=== PATIENT | male | born 1995 | race Caucasian/White ===

== ENCOUNTER 2020-03-26 22:09 | Emergency (ER) | payer SELFPAY ==
[2020-03-26] MEDS ORDERED: LIDOCAINE 4%/TETRACAINE 0.5%/EPI 0.18% 5 ML TOPICAL SOLN TOP ONE (22:35)
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
[2020-03-26 23:22] VITALS: BP 157/102
== END 2020-03-26 23:46 | disposition home or self-care (01) ==
LOC: ER 22:09
DX: T14.8XXA Other injury of unspecified body region, initial encounter (principal); S01.01XA Laceration without foreign body of scalp, initial encounter; X58.XXXA Exposure to other specified factors, initial encounter; F17.200 Nicotine dependence, unspecified, uncomplicated
CPT/HCPCS: 99282; 12002; J3490

== ENCOUNTER 2020-04-06 11:02 | Emergency (ER) | payer SELFPAY ==
[2020-04-06 11:10] VITALS: BP 167/110
--- NOTE | 2020-04-06 11:17 | ER Document Report ---
ED Suture/Wound Recheck - General Chief Complaint: Suture Removal Stated Complaint: SUTURE REMOVAL Time Seen by Provider: 04/06/20 11:14 Mode of Arrival: Ambulatory Information source: Patient - HPI Treated in ED (days ago): 9 Previous ED treatment: Laceration repair Quality of pain: No pain Severity: None Symptoms since procedure: No complaints Exacerbated by: Denies Relieved by: Denies - Related Data Allergies/Adverse Reactions: No Known Allergies Allergy (Verified 04/06/20 11:16) Past Medical History - General Information source: Patient - Social History Smoking Status: Never Smoker Cigarette use (# per day): No Chew tobacco use (# tins/day): No Smoking Education Provided: No Frequency of alcohol use: None Drug Abuse: None Family History: None Review of Systems - Review of Systems Constitutional: No symptoms reported EENT: No symptoms reported Cardiovascular: No symptoms reported Respiratory: No symptoms reported Gastrointestinal: No symptoms reported Genitourinary: No symptoms reported Male Genitourinary: No symptoms reported Musculoskeletal: No symptoms reported Skin: No symptoms reported Hematologic/Lymphatic: No symptoms reported Neurological/Psychological: No symptoms reported Physical Exam - Vital signs Vitals: Temp Pulse Resp BP Pulse Ox 98.5 F 96 14 167/110 H 100 04/06/20 11:07 04/06/20 11:07 04/06/20 11:07 04/06/20 11:07 04/06/20 11:07 Interpretation: Normal - General General appearance: Appears well, Alert - HEENT Head: Normocephalic, Atraumatic Eyes: Normal Pupils: PERRL - Respiratory Respiratory status: No respiratory distress Chest status: Nontender Breath sounds: Normal Chest palpation: Normal - Cardiovascular Rhythm: Regular Heart sounds: Normal auscultation Murmur: No - Abdominal Inspection: Normal Distension: No distension Bowel sounds: Normal Tenderness: Nontender Organomegaly: No organomegaly - Back Back: Normal, Nontender - Extremities General upper extremity: Normal inspection, Nontender, Normal color, Normal ROM, Normal temperature General lower extremity: Normal inspection, Nontender, Normal color, Normal ROM, Normal temperature, Normal weight bearing. No: Laura's sign - Neurological Neuro grossly intact: Yes Cognition: Normal Orientation: AAOx4 Gurjit Coma Scale Eye Opening: Spontaneous Gurjit Coma Scale Verbal: Oriented [place] Coma Scale Motor: Obeys Commands Gurjit Coma Scale Total: 15 Speech: Normal Motor strength normal: LUE, RUE, LLE, RLE Sensory: Normal - Psychological Associated symptoms: Normal affect, Normal mood - Skin Skin Temperature: Warm Skin Moisture: Dry Skin Color: Normal Notes: Healing wound to the top of his occiput. Stapled 9 days ago. No fever no excess drainage no excessive warmth at the site Course - Vital Signs Vital signs: Temp Pulse Resp BP Pulse Ox 98.5 F 96 14 167/110 H 100 04/06/20 11:07 04/06/20 11:07 04/06/20 11:07 04/06/20 11:07 04/06/20 11:07 Discharge - Discharge Clinical Impression: Removal of staple Condition: Good Disposition: HOME, SELF-CARE Instructions: Staple Removal ([facility])
== END 2020-04-06 11:27 | disposition home or self-care (01) ==
LOC: ER 11:02
DX: S01.81XD Laceration without foreign body of other part of head, subsequent encounter (principal); X58.XXXD Exposure to other specified factors, subsequent encounter

== ENCOUNTER 2020-09-06 15:59 | Emergency (ER) | payer SELFPAY ==
[2020-09-06] MEDS ORDERED: HYDROCODONE/ACETAMINOPHEN 5-325 MG TABLET PO ONE (17:31)
--- NOTE | 2020-09-06 17:35 | ER Document Report ---
ED Medical Screen (RME) - General Chief Complaint: Hand Injury Stated Complaint: HAND INJURY Time Seen by Provider: 09/06/20 17:25 Mode of Arrival: Ambulatory Information source: Patient Notes: Patient is a 25-year-old male comes emergency room complaining of a crush injury to his right hand. Patient states that yesterday he was replacing his truck springs on his truck and completed it and the wrench worked fantastic. He got in his 's [employer] [place] today when out to put them on. As he was attempting to put him on the wrench slipped and causing the car axle in spring to fall down on patient's right hand. Patient was wearing gloves and was able to get it checked back up was complaining of pain to his right hand at the third fourth and fifth metacarpal areas. Patient is unable to make a full extension of all fingers or a full grasping motion at this time. Patient only has a history of IBD, he does smoke and alcohol as well. Today patient states he had 4 beers. Patient is a well-nourished well-developed 25-year-old male who is in no apparent distress but appears uncomfortable. Cardiac: Shows tachycardic on the monitor the 110 bpm Lungs: Bilateral breath sounds increased clear to auscultation. Upper extremities: Examination patient's area concern is the right hand. Examination shows patient has an area that extends from the mid upper third metacarpal across to the fifth metacarpal with swelling mostly at the third and fourth dorsal aspect of the metacarpals. 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 Patient has good cap refill in the nailbeds of the right fingers. There is moderate swelling and redness noted to the same area as described. I have greeted and performed a rapid initial assessment of this patient. A comprehensive ED assessment and evaluation of the patient, analysis of test results and completion of the medical decision making process will be conducted by additional ED providers. Dictation of this chart was performed using voice recognition software; therefore, there may be some unintended grammatical errors. - Related Data Allergies/Adverse Reactions: No Known Drug Allergies Allergy (Verified 09/06/20 17:22) Past Medical History - Social History Chew tobacco use (# tins/day): No Frequency of alcohol use: Social Drug Abuse: Marijuana Physical Exam - Vital signs Vitals: Temp Pulse Resp BP Pulse Ox 98.5 F 110 H 16 143/107 H 97 09/06/20 16:21 09/06/20 16:21 09/06/20 16:21 09/06/20 16:21 09/06/20 16:21 Course - Vital Signs Vital signs: Temp Pulse Resp BP Pulse Ox 98.5 F 110 H 16 143/107 H 97 09/06/20 16:21 09/06/20 16:21 09/06/20 16:21 09/06/20 16:21 09/06/20 16:21
--- NOTE | 2020-09-06 18:08 | RADIOLOGY REPORT (SQ) ---
EXAM DESCRIPTION: HAND RIGHT 3 VIEWS IMAGES COMPLETED DATE/TIME: 09/06/2020 4:50 pm REASON FOR STUDY: Crush injury. COMPARISON: None. EXAM PARAMETERS: NUMBER OF VIEWS: Three views. TECHNIQUE: AP, lateral and oblique radiographic images acquired of the right hand. LIMITATIONS: None. FINDINGS: MINERALIZATION: Normal. BONES: No acute fracture or dislocation. No worrisome bone lesions. JOINTS: No effusions. SOFT TISSUES: No soft tissue swelling. No foreign body. OTHER: No other significant finding. IMPRESSION: NEGATIVE STUDY OF THE RIGHT HAND. NO RADIOGRAPHIC EVIDENCE OF ACUTE INJURY. TECHNICAL DOCUMENTATION: JOB ID: [id number] 2010 [employer]- All Rights Reserved Reading location - IP/workstation name: [email or web address]
--- NOTE | 2020-09-06 18:34 | ER Document Report ---
ED Hand/Wrist Injury - General Chief Complaint: Hand Injury Stated Complaint: HAND INJURY Time Seen by Provider: 09/06/20 17:25 Primary Care Provider: LIZ SON [Primary Care Provider] - Follow up as needed MARYAM LANDRUM DO [ACTIVE STAFF] - Follow up as needed Mode of Arrival: Ambulatory Information source: Patient Notes: I originally did the triage note on this patient earlier and since his x-rays were back and decided to pick him up. Patient was trying to place front end springs on his [employer] focus when the wrench slipped and the car fell down on top of his hand. He is complaining of a crush injury to the top of his right hand. Patient denies any other injuries. TRAVEL OUTSIDE OF THE [place] IN LAST 30 DAYS: No - HPI Injury to: Hand Onset: Just prior to arrival Where: Home Timing: Constant Quality of pain: Sharp, Throbbing Severity: Moderate Pain Level: 3 Context: Crush - Related Data Allergies/Adverse Reactions: No Known Drug Allergies Allergy (Verified 09/06/20 17:22) Past Medical History - General Information source: Patient - Social History Smoking Status: Current Every Day Smoker Cigarette use (# per day): Yes - Half pack Chew tobacco use (# tins/day): No Smoking Education Provided: Yes Frequency of alcohol use: Social Drug Abuse: Marijuana Lives with: Family Family History: None, Reviewed & Not Pertinent Review of Systems - Review of Systems Constitutional: No symptoms reported EENT: No symptoms reported Cardiovascular: No symptoms reported Respiratory: No symptoms reported Gastrointestinal: No symptoms reported Genitourinary: No symptoms reported Male Genitourinary: No symptoms reported Musculoskeletal: See HPI, Joint pain, Joint swelling Skin: No symptoms reported Hematologic/Lymphatic: No symptoms reported Neurological/Psychological: No symptoms reported -: Yes All other systems reviewed and negative Physical Exam - Vital signs Vitals: Temp Pulse Resp BP Pulse Ox 98.5 F 110 H 16 143/107 H 97 09/06/20 16:21 09/06/20 16:21 09/06/20 16:21 09/06/20 16:21 09/06/20 16:21 Interpretation: Hypertensive, Tachycardic - Notes Notes: PHYSICAL EXAMINATION: GENERAL: Well-appearing, well-nourished and in no acute distress. Uncomfortable appearing though HEAD: Atraumatic, normocephalic. LUNGS: Breath sounds clear to auscultation bilaterally and equal. No wheezes ra les or rhonchi. HEART: Tacky rate and rhythm without murmurs Musculoskeletal: Examination patient's area concern is his right hand. Evaluation shows there to be swelling on the dorsal aspect of the right hand extending from the third metacarpal through the fifth metacarpal distally. Mild swelling at the mid range of the metacarpals on the same fingers. Patient has 95% extension of the fingers and about 95% flexion of the fingers. This most likely is from the amount of swelling noted on the dorsum. There is extended swelling down to approximate distal wrist. Examination of the palm does not show any signs of swelling or deformity there are no open wounds. Patient has good cap refill in the nailbeds of the fingers of the right hand. NEUROLOGICAL: Normal speech, normal gait. Normal sensory, motor exams PSYCH: Normal mood, normal affect. SKIN: As stated examination of the area concern is the dorsum of the right hand extending from the third metacarpal area to the fifth metacarpal area without any sign of wounds. Moderate swelling is noted in that same generalized area. No ecchymosis is noted. Course - Re-evaluation Re-evalutation: 09/06/20 23:23 Patient was informed that this type of an injury with the swelling is very difficult for me to ascertain whether he has any ligament damage although having 95% flexion and extension I do not believe it to be a rupture of any of the tendons in the fingers. However I did inform him that the is to remove the splint in about 3 days and attempt to straighten the fingers out if he does not have 100% extension and flexion at that time he is to contact the orthopedic surgeon. I have given the name of the orthopedist aviation technical systems specialist today to contact. - Vital Signs Vital signs: Temp Pulse Resp BP Pulse Ox 98.5 F 89 18 128/82 H 100 09/06/20 16:21 09/06/20 19:34 09/06/20 19:34 09/06/20 19:34 09/06/20 19:34 Procedures - Immobilization Right Hand Pre-Proc Neuro Vasc Exam: Normal Immobilizer type: Cock-up Performed by: PCT Post-Proc Neuro Vasc Exam: Normal Alignment checked and good: Yes Discharge - Discharge Clinical Impression: Contusion of right hand including fingers Qualifiers: Encounter type: initial encounter Qualified Code(s): S60.221A - Contusion of right hand, initial encounter; S60.00XA - Contusion of unspecified finger without damage to nail, initial encounter Crushing injury of right hand Qualifiers: Encounter type: initial encounter Qualified Code(s): S67.21XA - Crushing injury of right hand, initial encounter Condition: Stable Disposition: HOME, SELF-CARE Instructions: Contusion ([facility]), Crush Injury ([facility]), Tendon Strain ([facility]) Additional Instructions: As we discussed use the splint to rest the hand. Ice to the area 3-4 times a day with ibuprofen and Tylenol for pain and discomfort. I am also writing for some pain medication for couple of days because of the swelling and tenderness. As we have discussed you do not have 100% extension of those fingers on the right hand. This could just be because of the swelling but I cannot really say if this is not caused by a partial tendon tear. After 3 days take the splint off attempt to straighten her fingers out if you do not have 100% straightening and 100% gripping you will need to see an orthopedist. I am giving you the name of the orthopedic on-call. You can contact his office to see if he can accommodate you. As stated if you cannot extend those or flex those very well you have a certain amount of time to fix these things so you do not need to wait on it. Should you have any concerns or problems arise return to ER for re evaluation. Prescriptions: Hydrocodone/Acetaminophen [[place] 5-325 mg Tablet] 1 tab PO Q6 PRN #10 tablet PRN Reason: Hydrocodone/Acetaminophen [[place] 5-325 mg Tabs (6 Tab/ER Disp)] 0 tab PO ASDIR PRN #1 dspk PRN Reason: Forms: Elevated Blood Pressure Referrals: LIZ SON [Primary Care Provider] - Follow up as needed MARYAM LANDRUM DO [ACTIVE STAFF] - Follow up as needed
[2020-09-06] MEDS ORDERED: HYDROCODONE/ACETAMINOPHEN 5-325 MG (6 TAB/ER DISP) PO PRN (19:06)
[2020-09-06 19:35] VITALS: BP 128/82
== END 2020-09-06 19:36 | disposition home or self-care (01) ==
LOC: ER 15:59
DX: S67.21XA Crushing injury of right hand, initial encounter (principal); S60.221A Contusion of right hand, initial encounter; W20.8XXA Other cause of strike by thrown, projected or falling object, initial encounter; Y93.89 Activity, other specified; Y92.009 Unspecified place in unspecified non-institutional (private) residence as the place of occurrence of the external cause; F17.210 Nicotine dependence, cigarettes, uncomplicated; F12.10 Cannabis abuse, uncomplicated; R00.0 Tachycardia, unspecified
CPT/HCPCS: 99283

== ENCOUNTER 2020-09-28 22:58 | Emergency (ER) | payer SELFPAY ==
[2020-09-28 23:27] VITALS: BP 144/106
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
== END 2020-09-29 02:20 | disposition home or self-care (01) ==
LOC: ER 22:58
DX: S60.222A Contusion of left hand, initial encounter (principal); S60.221A Contusion of right hand, initial encounter; Y04.0XXA Assault by unarmed brawl or fight, initial encounter; F17.200 Nicotine dependence, unspecified, uncomplicated
CPT/HCPCS: 99283

== ENCOUNTER 2020-10-04 16:47 | Emergency (ER) | payer SELFPAY ==
[2020-10-04] MEDS ORDERED: NORMAL SALINE 1000 ML 1,000 ML IV ONE (17:09)
--- NOTE | 2020-10-04 17:09 | ER Document Report ---
ED Medical Screen (RME) - General Chief Complaint: Flu Symptoms Stated Complaint: VOMITING,COUGH,SOB,CHEST PAIN Time Seen by Provider: 10/04/20 17:03 Mode of Arrival: Wheelchair Information source: Patient Notes: 25-year-old male presented to ED for complaint of feeling extremely weak and then falling off of the couch while he was playing a video game. He states then he started vomiting and choking on the vomit. He states it took over an hour for him to be able to get up off of the floor. He states his heart was racing he was extremely pale and weak. He states his girlfriend is a nurse she had to get him up to bring him into the emergency room. He states he has an extensive family history of cardiac problems with his grandmother having her first cardiac arrest at 26. He states he has an extensive diabetes family history and he is extremely scared of this happening. He states he has had frequent episodes of getting very weak when he eats and when he does not eat. He states he has been extremely thirsty more so in the last couple months. He just does not know what is going on with him today. I have greeted and performed a rapid initial assessment of this patient. A comprehensive ED assessment and evaluation of the patient, analysis of test results and completion of medical decision making process will be conducted by an additional ED providers. TRAVEL OUTSIDE OF THE [place] IN LAST 30 DAYS: No - Related Data Allergies/Adverse Reactions: No Known Drug Allergies Allergy (Verified 09/06/20 17:22)
[2020-10-04 17:51] LABS: ABSOLUTE BASOPHILS # (AUTO) 0.1 10^3/uL (0.0-0.2); ABSOLUTE EOSINOPHILS # (AUTO) 0.1 10^3/uL (0.0-0.6); ABSOLUTE LYMPHOCYTES (AUTO) 1.3 10^3/uL (0.5-4.7); ABSOLUTE MONOCYTES (AUTO) 0.4 10^3/uL (0.1-1.4); ABSOLUTE NEUT (AUTO) 7.6 10^3/uL (1.7-8.2); BASOPHILS % (AUTO) 0.6 % (0-2); EOSINOPHILS % (AUTO) 1.6 % (0-6); HEMATOCRIT 40.6 % (37.9-51.0); HEMOGLOBIN 14.1 g/dL (13.5-17.0); LYMPHOCYTES % (AUTO) 13.5 % (13-45); MEAN CORPUSCULAR HEMOGLOBIN 32.3 pg (27.0-33.4); MEAN CORPUSCULAR HGB CONC 34.8 g/dL (32.0-36.0); MEAN CORPUSCULAR VOLUME 93 fl (80-97); MONOCYTES % (AUTO) 4.4 % (3-13); PLATELET COUNT 260 10^3/uL (150-450); RED BLOOD COUNT 4.37 10^6/uL (4.35-5.55); RED CELL DISTRIBUTION WIDTH 14.5 % (11.5-14.0); SEGMENTED NEUTROPHILS % (AUTO) 79.9 % (42-78); TOTAL CELLS COUNTED % (AUTO) 100 %; WHITE BLOOD COUNT 9.5 10^3/uL (4.0-10.5)
[2020-10-04 18:00] LABS: ALBUMIN 4.8 g/dL (3.5-5.0); ALKALINE PHOSPHATASE 114 U/L (38-126); ANION GAP 10 (5-19); ASPARTATE AMINO TRANSFERASE 96 U/L (17-59); BILIRUBIN,DIRECT 0.2 mg/dL (0.0-0.4); BILIRUBIN,TOTAL 1.2 mg/dL (0.2-1.3); BLOOD UREA NITROGEN 10 mg/dL (7-20); CALCIUM 9.5 mg/dL (8.4-10.2); CARBON DIOXIDE 29 mmol/L (22-30); CHLORIDE 102 mmol/L (98-107); GLUCOSE 112 mg/dL (75-110); POTASSIUM 3.9 mmol/L (3.6-5.0); TOTAL PROTEIN 7.9 g/dL (6.3-8.2)
[2020-10-04 18:35] LABS: A TYPE INFLUENZA AG NEGATIVE (NEGATIVE); B INFLUENZA AG NEGATIVE (NEGATIVE)
--- NOTE | 2020-10-04 18:51 | RADIOLOGY REPORT (SQ) ---
EXAM DESCRIPTION: CHEST SINGLE VIEW IMAGES COMPLETED DATE/TIME: 10/04/2020 6:13 pm REASON FOR STUDY: Weak syncopal COMPARISON: None. EXAM PARAMETERS: NUMBER OF VIEWS: One view. TECHNIQUE: Single frontal radiographic view of the chest acquired. RADIATION DOSE: NA LIMITATIONS: None. FINDINGS: LUNGS AND PLEURA: No opacities, masses or pneumothorax. No pleural effusion. MEDIASTINUM AND HILAR STRUCTURES: No masses. Contour normal. HEART AND VASCULAR STRUCTURES: Heart normal in size. Normal vasculature. BONES: No acute findings. HARDWARE: None in the chest. OTHER: No other significant finding. IMPRESSION: NO ACUTE RADIOGRAPHIC FINDING IN THE CHEST. TECHNICAL DOCUMENTATION: JOB ID: [id number] 2010 [employer]- All Rights Reserved Reading location - IP/workstation name: [email or web address]
--- NOTE | 2020-10-04 19:35 | ER Document Report ---
ED Flu Like - General Chief Complaint: Flu Symptoms Stated Complaint: VOMITING,COUGH,SOB,CHEST PAIN Time Seen by Provider: 10/04/20 17:03 Primary Care Provider: MICHELLE MOSES MD [ACTIVE STAFF] - Follow up in 1 week (for GI follow up) Mode of Arrival: Wheelchair TRAVEL OUTSIDE OF THE [place] IN LAST 30 DAYS: No - HPI Notes: 25-year-old male to the emergency department with complaints of weakness, nausea vomiting, epigastric pain, chest pain that began tonight but states that he has been having this off and on since December. He states that he has been vomiting several times a month. Typically he has an episode where he vomits in the night 2-3 times a week. He states it does seem to get worse with food such as spicy hot wings. He denies any burping. He states that it is so severe at this point that now he has difficulty eating. He does admit to alcohol use. He states he has between 8 shots with a sixpack a week. He denies any fevers or chills. He states he just feels exceptionally weak and fatigued. He denies any possible contacts for COVID-19. Denies any loss of sense of smell or taste. All over body aches. The patient was evaluated during the global COVID 19 pandemic, and that diagnosis was suspected/considered upon their initial presentation. Their evaluation, treatment, and testing was consistent with current guidelines for patients who present with complaints or symptoms that may be related to COVID- 19. - Related Data Allergies/Adverse Reactions: No Known Drug Allergies Allergy (Verified 09/06/20 17:22) Past Medical History - General Information source: Patient - Social History Smoking Status: Current Every Day Smoker Frequency of alcohol use: Heavy - 8 shots a week with at least a sixpack of beer Drug Abuse: None Family History: None, Reviewed & Not Pertinent Past Surgical History: Reports: Hx Oral Surgery - wisdom Review of Systems - Review of Systems Constitutional: Malaise, Weakness. denies: Chills, Fever EENT: No symptoms reported Cardiovascular: See HPI, Chest pain, Lightheaded. denies: Palpitations, Heart racing, Syncope, Dizziness Respiratory: denies: Cough, Short of breath Gastrointestinal: See HPI, Abdominal pain, Nausea, Vomiting. denies: Diarrhea Genitourinary: No symptoms reported Musculoskeletal: No symptoms reported Skin: No symptoms reported Hematologic/Lymphatic: No symptoms reported Neurological/Psychological: No symptoms reported -: Yes All other systems reviewed and negative Physical Exam - Vital signs Vitals: Temp Pulse Resp BP Pulse Ox 98.5 F 87 20 145/95 H 99 10/03/20 17:01 10/03/20 17:01 10/03/20 17:01 10/03/20 17:01 10/03/20 17:01 Interpretation: Hypertensive - Notes Notes: PHYSICAL EXAMINATION: GENERAL: Well-appearing, well-nourished and in no acute distress. HEAD: Atraumatic, normocephalic. EYES: Pupils equal round and reactive to light, extraocular movements intact, sclera anicteric, conjunctiva are normal. ENT: nares patent, oropharynx clear without exudates. Moist mucous membranes. TMs clear bilaterally NECK: Normal range of motion, supple without lymphadenopathy LUNGS: Breath sounds clear to auscultation bilaterally and equal. No wheezes rales or rhonchi. HEART: Regular rate and rhythm without murmurs ABDOMEN: Soft, positive tenderness to palpation to the epigastrium. Negative Lee sign, negative McBurney's point, normoactive bowel sounds. No guarding, no rebound. No masses appreciated. No CVA tenderness EXTREMITIES: Normal range of motion, no pitting or edema. No cyanosis. NEUROLOGICAL: No focal neurological deficits. Moves all extremities spontaneously and on command. PSYCH: Normal mood, normal affect. SKIN: Warm, Dry, normal turgor, no rashes or lesions noted. Course - Re-evaluation Re-evalutation: 10/04/20 2 Rounded on patient. He is feeling much better after Zofran, Toradol, Pepcid as well as IV fluids. He is requesting a brigette nika. He tolerates p.o. challenge. I suspect that this patient has reflux disease with likely a little gastritis and possibly some esophagitis given the amount of vomiting he states he has been doing. He drinks quite a bit every week and he eats a lot of foods that are acidic in nature. I have counseled him against this. We will go ahead and put him on the omeprazole. However, I have encouraged him to follow-up with a GI specialist and will give him information. He is to return if he is worse. He was tested for COVID-19. We will await his labs results. Suspect that this is more of a chronic issue than likely an acute COVID-19 infection however, we will have the patient quarantine appropriately. He agrees with the plan. - Vital Signs Vital signs: Temp Pulse Resp BP Pulse Ox 98.5 F 85 18 143/74 H 100 10/03/20 17:01 10/04/20 20:28 10/04/20 20:28 10/04/20 20:28 10/04/20 20:28 - Laboratory Results Result Diagrams: 10/04/20 17:16 10/04/20 17:16 Laboratory Results Interpreted: 10/04/20 10/04/20 17:16 17:16 RDW 14.5 H Seg Neutrophils % 79.9 H Glucose 112 H AST 96 H ALT 65 H Critical Laboratory Results Reviewed: No Critical Results - Radiology Results Critical Radiology Results Reviewed: No Critical Results - EKG Interpretation by Me Additional EKG results interpreted by me: 10/04/20 Rate: 80 Rhythm: Sinus Interpretation: No STEMI, no ST changes, normal axis, no LVH Discharge - Discharge Clinical Impression: Epigastric abdominal pain, Weakness, Encounter for laboratory testing for COVID-19 virus Vomiting Qualifiers: Vomiting type: unspecified Vomiting Intractability: non-intractable Nausea presence: with nausea Qualified Code(s): R11.2 - Nausea with vomiting, unspecified Condition: Stable Disposition: HOME, SELF-CARE Instructions: COVID-19 Guidance for Persons Under Investigation, Reflux Disease (GERD) ([facility]), Vomiting ([facility]) Additional Instructions: Please follow-up with GI specialist without fail. Please take medicine as prescribed. Return if you have worsening symptoms. Avoid acidic foods, alcohol, chocolate, mint. Please wait 2 hours before laying down after eating. Today you were tested for Covid. You will need to quarantine until the result is back. Results usually come back within 3 to 5 days. As a person under investigation for COVID-19, [facility], division of public health advises you to adhere to the following guidance until your test results are reported to you. If your test result is positive, you will receive additional information from your provider and your local health department at that time. Remain at home until you are cleared by the healthcare provider public health authorities. Keep a log of visitors to your home and notify any visitors to your home of your isolation status. If you plan to move to a new address or leave the country, notify the local health department and your County. Call your doctor or seek care if you have an urgent medical need. Before seeking medical care, call ahead to get instructions from the provider before arriving at the medical office, clinic, or hospital. Notify them that you are being tested for the virus that causes COVID-19 so that arrangements can be made, as necessary, to prevent transmission to others in the healthcare setting. Next, notify the local health department and your County. If a medical emergency arises and you need to call 911, informed the first responders that you are being tested for the virus that causes COVID-19. Next, notified the local health department and your County. Prescriptions: Omeprazole 40 mg PO DAILY #60 capsule. Promethazine HCl [Phenergan 25 mg Supp.rect] 1 supp IA Q6H #12 supp.rect Ondansetron [Zofran Odt 4 mg Tablet] 1 - 2 tab PO Q4H PRN #15 tab.rapdis PRN Reason: For Nausea/Vomiting Forms: Return to Work Referrals: MICHELLE MOSES MD [ACTIVE STAFF] - Follow up in 1 week (for GI follow up)
[2020-10-04] MEDS ORDERED: KETOROLAC TROMETHAMINE INJ/PF 30 MG/1 ML SDV IV ONE (19:36)
[2020-10-04] MEDS ORDERED: ONDANSETRON HCL INJ/PF 4 MG/2 ML SDV IV ONE (19:36)
[2020-10-04] MEDS ORDERED: FAMOTIDINE INJ/PF 20 MG/2 ML SDV IV ONE (19:36)
[2020-10-04 20:30] VITALS: BP 143/74
--- NOTE | 2020-10-04 21:13 | EKG REPORT ---
SEVERITY:- NORMAL ECG - SINUS RHYTHM : Confirmed by: Terry Blankenship MD 04-Oct-2020 21:12:26
== END 2020-10-04 20:30 | disposition home or self-care (01) ==
LOC: ER 16:47
DX: R10.13 Epigastric pain (principal); R53.1 Weakness; R11.2 Nausea with vomiting, unspecified; W08.XXXA Fall from other furniture, initial encounter; Z20.828 Contact with and (suspected) exposure to other viral communicable diseases
CPT/HCPCS: 93005; 99285; 96361; 96374; 96375; 36415; 82962; 83690; 85025; 87635; 80053; 84484; 87804; 71045; 93010; J1885; J2405; J7030; S0028; C9803